=== PATIENT | female | born 1940 | race Caucasian/White ===

== ENCOUNTER → 2020-01-11 10:55 | Outpatient (CLI) | payer MEDICARE, SELFPAY ==
[2020-01-11 12:39] LABS: COVID19 -Nasal RAPID Negative (Negative)
== END ==
PROVIDERS: PCP Internal Medicine; Visit Provider Physician Assistant
DX: Z11.59 Encounter for screening for other viral diseases (principal)
CPT/HCPCS: 87635

== ENCOUNTER 2020-01-14 15:54 | Inpatient (IN) | payer MEDICARE, SELFPAY ==
[2020-01-08 08:45] VITALS: BMI 20.1
[2020-01-13] VITALS (22 sets, daily range): BP systolic 97–177; BP diastolic 49–88; PULSE 60–79; RESP 10–22; TEMP 35.9–37.2; O2SAT 10–98; BMI 19.1
--- NOTE | 2020-01-13 | DI.RAD.S_ITS ---
PROCEDURE: XR LUMBAR SPINE 2-3V INDICATIONS: L4-L5 TLIF TECHNIQUE: 2 views of the lumbar spine were acquired. COMPARISON: None. FINDINGS: Spot fluoroscopic intraoperative images demonstrating L4-L5 posterior spinal fixation hardware with paraspinal uma and pedicle screws. Interbody cage graft also noted. Dictated by: Ameya Caudra M.D. on 01/13/2020 at 16:05 Approved by: Ameya Cuadra M.D. on 01/13/2020 at 16:06
[2020-01-13] MEDS: LACTATED RINGERS 1,000 ML 42 ML IV (12:00)
--- NOTE | 2020-01-13 12:12 | PM.PREOP ---
Pre-operative Note COVID-19 COVID-19 status: Negative Result date/Date tested (Pos, Neg/Pending): 01/11/20 Interval Note History & Physical reviewed/Exam performed by Physician: Yes Changes to H&P: No
[2020-01-13] MEDS: CEFAZOLIN 2 GM/100 ML FROZ.PIGGY IV (12:40)
--- NOTE | 2020-01-13 13:20 | SUR.OPER ---
Prone on spine table, head in foam head support, padded chest and pelvic supports, gel pad at knees, lower legs supported by pillows; nipples, genitalia and toes free of pressure, arms secured on foam padded arm boards at <90 degrees abduction. Tape over blanket at thigh secured to table.
[2020-01-13] MEDS: BUPIVACAINE LIPOSOME 266 MG/20 ML VIAL INJ (13:27)
[2020-01-13] MEDS: BUPIVACAINE 0.5% W/ EPI (PF) 30 ML VIAL INJ (13:27)
[2020-01-13] MEDS: ACETAMINOPHEN IV 1,000 MG/100 ML VIAL 400 MG IV (13:56)
--- NOTE | 2020-01-13 15:17 | P.OP_ITS ---
Operative Date/Time/Diagnoses Date of procedure: 01/13/20 Time of procedure: 12:17 Pre-op diagnosis: 1. L4-5 spondylolisthesis 2. L4-5 spinal stenosis Post-op diagnosis: same Procedure & Clinicians Procedure: 1. L4-5 Postero-lateral and posterior interbody fusion 2. L4-5 interbody cage placement. 3. L4-5 decompressive laminectomy with bilateral facetecomies 4. L4-5 Posterior non-segmental instrumentation 5. [place]kee of bone marrow from iliac crest 6. Utilization of microsurgical technique and operating microscope Same procedure as scheduled: Yes Indications: Patient has been having chronic back pain and worsening lumbar radiculopathy. Patient failed multiple conservative management with worsening pain weakness and numbness in her lower extremity. Patient has been having difficulty performing activity of daily living. After discussing risks benefits of treatment options, patient elected proceed with surgery. Surgeon: Yris Adams House Piping Inspector: Tari Prince Click Yes if Unassisted: No Anesthesia Type: General Operative Notes Closure Type: primary Specimen(s): none sent Prosthetic devices, grafts, tissues, transplants, or devices: Globus revolve screws, Rise cage Estimated Blood Loss (mL): 75 Blood products transfused: none Procedure in detail: Patient was seen in the preoperative area. Risks and benefits of the surgery was discussed with the patient. Informed consent was obtained from the patient and placed in the chart. Surgical site was marked. Patient was taken to the operative room. General anesthesia was administered. Prophylactic antibiotic was given to the patient less than 30 min before the incision was made. Patient was placed into a prone position on the Naman table. Patient's back was then prepped and draped in the sterile fashion. Time- out was performed at this time. Using AP and lateral C-arm imaging the interval between L4-5 was identified and marked on patient's back. A 2 inch incision 2 in from midline was made on the right side first. The fascia was incised in line with skin incision. Globus MARS retractors was placed inside the incision and docked onto the L4 lamina. Using microsurgical technique and operating microscope, a L4 laminectomy and L4-5 facetectomy was performed using a Kerrison rongeur. The disc space at L4-5 was identified. And a total diskectomy was performed at L4-5 level. The endplates were decorticated using a rasp and shaver. The total diskectomy and decortication was performed at L4-5 level in order to to accomplish a L4-5 fusion. The local bone from the laminectomy and facetectomy was saved for local bone grafting. After the total diskectomy and decortication was completed, Trifecta bone graft material was combined with local bone that was harvested earlier. At this time, a separate skin is incision was made over the iliac crest. A Jamshidi needle was inserted into the iliac crest through a separate skin incision. 5 cc of bone marrow aspiration was obtained through the separate skin incision using a Jamshidi needle from the iliac crest. The bone marrow aspiration was combined with local bone and the Trifecta bone grafting material. The bone grafting material was placed into the L4-5 interbody space along with a expandable cage. The cage was expanded to its maximum height using the torque limiting screwdriver. At this time a mirror image incision was made on the left side. The fascia was incised in line with the skin incision. Globus MARS retractor was inserted and docked onto the L4-5 posterolateral gutter. Using the power drill, posterior- lateral decortication was performed at L4-5 level until bleeding cortical bone was identified. The remaining bone grafting material was placed into the L4-5 posterior lateral gutter he order to accomplish posterolateral fusion at the L4- 5 level. Using the double C-arm technique, pedicle screws were placed into the L4-5 pedicles bilaterally. This was done by placing the Jamshidi needle into the pedicles, then placing the guidewires over the Jamshidi needle, and finally placing the cannulated screws over the guidewires bilaterally. After the pedicle screws were placed, 2 titanium rods was locked into the heads of the pedicle screws using locking caps and torque limiting screwdriver. After all the hardware was placed, and confirmed with AP and lateral C-arm imaging, the wound was then irrigated with sterile normal saline and packed with Ray-Leslie gauze for 3 min to accomplish hemostasis. After the gauze was removed the deep fascia was closed with #1 Vicryl suture. The subcutaneous layer was closed with 2-0 Vicryl. The skin was closed with skin serafin. Patient tolerated the procedure well. There were no complications. Complications: none Post-operative Condition: stable Disposition: PACU Plan for aftercare: Admit to inpatient hospital
[2020-01-13] MEDS: fentaNYL 100 MCG/2 ML INJ IV (15:57)
[2020-01-13] MEDS: ONDANSETRON 4 MG/2 ML INJ IV (16:09)
[2020-01-13] MEDS: OXYCODONE IR 5 MG TABLET PO (16:09)
--- NOTE | 2020-01-13 19:14 | PC.NURSE ---
Addendum entered by Zabrina Ramirez R.N. 01/13/20 21:58: Relatively uneventful evening. Med w/ oxycodone @ 2030 for discomfort, w/good relief. Surgical dsg to back CDI. Call light w/in reach, pt calls appropriately for needs. Continue w/plan of care. Original Note: Pt arrived from PACU @ 1635 Awake but drowsey Surgical back dsg CDI. HL intact/patent, right hand. Call light w/in reach, bed alarm on for pt safety.
[2020-01-13] MEDS: GABAPENTIN 600 MG TABLET PO (20:26)
[2020-01-13] MEDS: METOPROLOL ER 25 MG TABLET PO (20:26)
[2020-01-13] MEDS: OXYCODONE/ACETAMINOPHEN 5/325 TABLET 1 TAB PO (20:27)
[2020-01-14] VITALS (8 sets, daily range): BP systolic 103–127; BP diastolic 55–73; PULSE 65–78; RESP 15–19; TEMP 36–37.2; O2SAT 96–97
[2020-01-14] MEDS: OXYCODONE/ACETAMINOPHEN 5/325 TABLET 1 TAB PO ×4 (00:29→19:47)
[2020-01-14] MEDS: LEVOTHYROXINE 137 MCG TABLET PO (05:55)
--- NOTE | 2020-01-14 07:38 | PM.PNPO.1 ---
Subjective Subjective Date Patient Seen: 01/14/20 Time Patient Seen: 07:38 Interval history: POD #1 s/p L4-[address] Adams. She is having a lot of pain in the back and into the right leg. Pain not well controlled with Oxycodone 5 mg. No issues in the past taking steroids. Exam Vital Signs (past 8 hours): - 01/13/20 23:56 01/14/20 04:57 Temperature 96.6 F L 96.8 F L Pulse Rate 67 65 Respiratory Rate 16 16 Blood Pressure 132/63 111/60 Pulse Oximetry 98 97 Oxygen Delivery Method Room Air Oxygen Flow Rate 0 Narrative Exam Narrative: Patient lying in bed in NAD. She is alert and oriented X3. Calves are soft, compressible, and nontender bilaterally. She is able to actively dorsiflex and plantarflex. SILT through BLEs. 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) Endometrial carcinoma (1996) GERD (gastroesophageal reflux disease) History of sepsis (03/2010) Hx SBO (09/1998) Hypothyroidism LBBB (left bundle branch block) (~2016) Polyneuropathy Small intestine cancer Surgical History History of bronchoscopy (2016) History of hysterectomy (1996) History of rectal surgery (10/2009) History of surgery (09/2014) Hx of abdominal surgery (11/1998) Hx of appendectomy (1996) Hx of bilateral cataract extraction Hx of ileostomy (03/2009) Hx of resection of rectum (02/2009) Social History household members: none Smoking Status: Never smoker alcohol intake: never Assessment & Plan Post-op Postoperative Procedures: Procedures Operation Date: 01/13/20 12:45 Actual Procedures Side Surgeon p L4-5 TLIF Yris Adams MD Patient will mobilize with PT today. No excessive bending, lifting, or twisting. Will increase to Oxycodone 10 mg. Will start 24 hour steroid burst with Decadron 10 mg IV now, and Decadron 4 mg Q6HRs. If patient is mobilizing safely with adequate pain control she can go home today or tomorrow. Quality VTE Deep Vein Thrombosis/Pulmonary Embolism Present on Admission: No
[2020-01-14] MEDS: lisinopriL 5 MG TABLET 2.5 MG PO (08:27)
[2020-01-14] MEDS: DEXAMETHASONE 10 MG/ML VIAL IV (08:29)
[2020-01-14] MEDS: GABAPENTIN 600 MG TABLET PO ×3 (08:29→19:50)
[2020-01-14 08:43] LABS: Hematocrit 29.7 % (36-46); Mean Corpuscular HGB Conc 33.6 % (30-36); Mean Corpuscular Hemoglobin 31.8 PG (26-34); Mean Corpuscular Volume 94.6 fL (80-100); Platelet Count 270 X10^3/uL (150-400); Red Blood Cell Count 3.14 X10^6/uL (4.0-5.2); Red Cell Distribution Width 14.1 % (11.6-14.8); White Blood Cell Count 16.1 X10^3/uL (4.5-11.0)
--- NOTE | 2020-01-14 11:30 | PT.IIE ---
Current Diagnoses Spondylolisthesis, lumbar region (01/13/20) Spinal stenosis, lumbar region without neurogenic claudication (01/13/20) Surgery Performed Operation Date: 01/13/20 12:45 Actual Procedures p L4-5 TLIF - Yris Adams MD Surgical History (Last Reviewed 01/14/20 @ 10:24 by Tari Prince PA-C) History of bronchoscopy (2016) History of hysterectomy (1996) History of rectal surgery (10/2009) History of surgery (09/2014) Hx of abdominal surgery (11/1998) Hx of appendectomy (1996) Hx of bilateral cataract extraction Hx of ileostomy (03/2009) Hx of resection of rectum (02/2009) Medical History (Last Reviewed 01/14/20 @ 10:24 by Tari Prince PA-C) BCC (basal cell carcinoma) Cardiomyopathy CHF (congestive heart failure) 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 Pt is an effective verbal communicator. Mobility and Gait Pt states she uses furniture and cárdenas for support inside her small home. She uses a cane to go outside and retrieve her mail. When shopping, she is able to complete a grocery trip with a standard cart but will occasionally use a motorized cart. Activities of Daily Living and IADL's Independent with all ADL's. Pt independently manages her ostomy. She states she drinks a lot of water and tends to wear a pad especially at night . She reports saddle anesthesia which occasionally makes it difficult to know when she needs to void. Prior Functional Level (Other details) Pt reports one fall in the past year which occured on uneven ground while pruning raspberries. Social History Household Members none Living Arrangements Mobile home Number of Floors (Floors) One Floor Number of Stairs To Enter/Railing? 4 TERESITA with right rail ascending. There is another stair set with bilateral rails but pt typically uses the one with unilateral railing. 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 She now lives alone in a mobile home in [place]. Her recently moved to a memory care facility in [place]. Pt's [id number] will pick her up at discharge and her friend , Mandi, will stay with her until Monday. Pt states she has lined up friends to assist as needed after Monday for as long as she needs help. M2 PT-IP Current Condition Start: 01/14/20 10:26 Freq: NEEDED Status: Active Protocol: Document 01/14/20 11:22 AW (Rec: 01/14/20 13:00 AW [id number]) Physical Therapy Current Condition Current Condition Evaluation Date 01/14/20 Treatment Diagnosis L4-5 TLIF, difficulty in walking Onset Date 01/13/20 Precautions Lumbar Precautions Log Roll,No Twisting,Limit Bending,Lifting Restriction of 10 lbs,Gait Belt above Incisional Area M3 PT-IP Subjective Start: 01/14/20 10:26 Freq: NEEDED Status: Active Protocol: Document 01/14/20 11:22 AW (Rec: 01/14/20 13:00 AW [id number]) Subjective Physical Therapy Visit Type Type Initial Evaluation Visit Start Time 10:33 Visit Stop Time 11:19 Total Visit Minutes 46 Notes Co-eval with MILEY Echeverria Number of METALS ANALYST Visits 0 Physical Therapy Visit Comments Patient Comments Pt is having difficulty with pain control but is willing to participate with PT Patient Goals Pt hopes to return home with friends providing support. Therapy Pain Assessment Pain When Pain Assessed At Rest Pain Present Pain Present Pain Reported Location Left Back Intensity 5 Scale Used Numeric (0 - 10) Pain Management Techniques Apply Cold,Timing of Activity with Medications M4 PT-IP Mobility and Gait Start: 01/14/20 10:26 Freq: NEEDED Status: Active Protocol: Document 01/14/20 11:22 AW (Rec: 01/14/20 13:00 AW [id number]) PT-Bed Mobility Assessment Rolling Type of Rolling Log Rolling,Roll to Right Level of Assist Contact Guard Assistance, Minimal Assistance Supine to Sit Supine to Sit Contact Guard Assistance, Minimal Assistance Sit to Supine Sit to Supine Contact Guard Assistance, Minimal Assistance Scooting Scooting to Edge of Bed Standby Assistance PT-Transfer Assessment Sit to and From Stand Sit to and from Stand Minimal Assistance,Use of Upper Extremities Equipment Transfer Assistive Device Gait Belt,Front Wheeled Walker Orthotic/Prosthetic Devices or Brace: No Transfers Transfer Destination Chair,Toilet Transfer Technique pt amb with FWW Transfer Ability Level of Assist Contact Guard Assistance, Minimal Assistance Comments Mobility Comments Pt was lying in bed as PT and OT arrived. BP was 132/72 HR 71. She was educated in back precautions and log roll for bed mobility. She requried min assist to roll to her right side and to transition from sidelying to sit. Pt complained of mild lightheadedness in sitting. BP was stable at 131/67 HR 77. Pt was able to stand using FWW min A x 1. She ambulated to the toilet CGA. OT assisted pt with toileting. Pt then ambulated to the chair, complaining of increased lightheadedness. With min 1PA, she transferred safely to the chair. BP was 118/59 HR 70. Pt was left with OT. Gait Assessment Gait Gait Assistance Required: Contact Guard Assist Distance (Feet) 15 Able to Maintain Weight Bearing Status Yes During Gait Assistive Devices Assistive Device Gait Belt,Front Wheeled Walker Orthotic/Prosthetic Devices or Brace: No Gait Deviations General Gait Pattern Antalgic,Decreased Stride Length,Decreased Feet Clearance,Flexed Trunk Factors Limiting Gait Function Factors Limiting Gait Function Decreased Activity Tolerance, Decreased Sensation,Decreased Strength,Limited Range of Motion,Pain,Poor Balance Comments Gait Comments Pt ambulated with good awareness of back precautions, often verbalizing her movement strategies before executing. Stair Climbing Assessment Comments Stair Climbing Comments Not assessed. PT-Balance Assessment Sitting Balance and Reactions Static Sitting Balance Ability Good Dynamic Sitting Balance Ability Good Standing Balance and Reactions Static Standing Balance Ability Good Dynamic Standing Balance Ability Good Device Used FWW M5 PT-IP Objective Assessments Start: 01/14/20 10:26 Freq: NEEDED Status: Active Protocol: Document 01/14/20 11:22 AW (Rec: 01/14/20 13:00 AW [id number]) Orientation Orientation/Cognition Level of Alertness Alert Orientation Name,Age,Birthday,Month,Date, Year,Day of Week,Place, Situation Language Function Ability No Deficits Noted Safety Awareness Understands Safety Issues Memory Description No Deficits Noted Gross Range of Motion Lower Extremity ROM Assessment Within Functional Limits Strength Lower Extremity Strength Assessment Bilaterally Impaired Hip L4/5; R 4-/5 Knee B 4+/5 Ankle B 4+/5 Coordination Assessment Gross Coordination Gross Coordination WNL Sensation Assessment Sensation Gross Sensation Right LE Impaired,Left LE Impaired Light Touch Impaired Comments Sensation Comments Light touch impaired with right more affected than left. Pt also endorsed saddle anesthesia which is chronic. Muscle Tone Muscle Tone WNL Yes M6 PT-IP Treatment Start: 01/14/20 10:26 Freq: NEEDED Status: Active Protocol: Document 01/14/20 11:22 AW (Rec: 01/14/20 13:00 AW [id number]) Physical Therapy Treatment Education Education Provided Precautions,Post-Op Packet, Safety Other Treatments Other Treatment Performed Provided education on role of PT, plan of care, post op precautions, and safe use of FWW. M7 PT-IP Assessment and Plan Start: 01/14/20 10:26 Freq: NEEDED Status: Active Protocol: Document 01/14/20 11:22 AW (Rec: 01/14/20 13:00 AW [id number]) PT Summary Assessment and Plan Potential Rehabilitation Potential Good Status of Condition at Evaluation Evolving Summary Impairments Pain,ROM,Strength,Balance, Sensation,Bed Mobility, Transfers,Gait,Activity Tolerance Assessment Summary Krysta is a 79 yo woman seen for PT evaluation on POD1 following L4-5 TLIF. She is modified independent at baseline with use of SPC for longer distances. She lives alone but will have friends stay with her at discharge. On evaluation, pt requried CGA to min assist with bed mobility, transfers, and short bout ambulation with FWW. Pt is not safe for discharge at this time. She will need to increase her activity tolerance and clear stairs prior to discharge but PT anticipates she will progress and be safe for discharge home with assist once medically cleared. Goals Bed Mobility Goal Standby Assistance Transfer Goal Standby Assistance,Front Wheeled Walker Gait Goal Standby Assistance,Front Wheel Walker Gait Distance 200 Other Goals - up/down 4 steps with unilateral rail SBA Days to Meet Goals 3 Frequency of Treatment Frequency Of Treatment Twice a Day Treatment Plan Physical Therapy Treatment Plan Bed Mobility Training,Transfer Training,Gait Training, Therapeutic Exercise,Balance Retraining,Post Op Education, Discharge Planning,Hot or Cold Pack Recommendations To Nursing Amount of Assist Needed 1 Person Assist Discharge Recommendations PT Discharge Recommendations Home with Assistance Transportation Needs at Discharge Private Vehicle
--- NOTE | 2020-01-14 11:32 | OT.IP.EVAL ---
Current Diagnoses Spondylolisthesis, lumbar region (01/13/20) Spinal stenosis, lumbar region without neurogenic claudication (01/13/20) Surgery Performed Operation Date: 01/13/20 12:45 Actual Procedures p L4-5 TLIF - Yris Adams MD Past Medical History (Last Reviewed 01/14/20 @ 10:24 by Tari Prince PA-C) BCC (basal cell carcinoma) Cardiomyopathy CHF (congestive heart failure) Colostomy in place (11/2008) Endometrial carcinoma (1996) GERD (gastroesophageal reflux disease) History of sepsis (03/2010) Hx SBO (09/1998) Hypothyroidism LBBB (left bundle branch block) (~2016) Polyneuropathy Small intestine cancer Surgical History (Last Reviewed 01/14/20 @ 10:24 by Tari Prince PA-C) History of bronchoscopy (2016) History of hysterectomy (1996) History of rectal surgery (10/2009) History of surgery (09/2014) Hx of abdominal surgery (11/1998) Hx of appendectomy (1996) Hx of bilateral cataract extraction Hx of ileostomy (03/2009) Hx of resection of rectum (02/2009) Occupational Therapy Inpatient Evaluation/Re-Eval M1 PT/OT-IP Prior Functional Status Start: 01/14/20 14:38 Freq: NEEDED Status: Active Protocol: Document 01/14/20 10:35 [facility] (Rec: 01/14/20 15:07 [facility] [id number]) Medical Review Prior Functional Status Medical History Reviewed Yes Communication WNL. Pt is an effective verbal communicator. Mobility and Gait Pt states she uses furniture and cárdenas for support inside her small home. She uses a cane to go outside and retrieve her mail. When shopping, she is able to complete a grocery trip with a standard cart but will occasionally use a motorized cart. Activities of Daily Living and IADL's Independent with all ADL's. Pt independently manages her oostomy. She states she drinks a lot of water and tends to wear a pad especially at night . She reports saddle anesthesia which occasionally makes it difficult to know when she needs to void. Prior Functional Level (Other details) Pt reports one fall in the past year which occured on uneven ground while pruning raspberries. Social History Household Members none Living Arrangements Mobile home Number of Floors (Floors) One Floor Number of Stairs To Enter/Railing? 4 TEERSITA with right rail ascending. There is another stair set with bilateral rails but pt typically uses the one with unilateral railing. 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 She now lives alone in a mobile home in [place]. Her recently moved to a memory care facility in [facility]. Pt's [id number] will pick her up at discharge and her friend , Mandi, will stay with her until Monday. Pt states she has lined up friends to assist as needed after Monday for as long as she needs help. M2 OT-IP Current Condition Start: 01/14/20 14:38 Freq: Status: Active Protocol: Document 01/14/20 10:35 [facility] (Rec: 01/14/20 15:07 [facility] [id number]) Occupational Therapy Current Condition Current Condition Evaluation Date 01/14/20 Treatment Diagnosis s/p L4-5 TLIF Diagnosis Onset Date Post Operative Precautions Lumbar Precautions Log Roll,No Twisting,Limit Bending,Lifting Restriction of 10 lbs,Gait Belt above Incisional Area M3 OT- IP Subjective and Pain Start: 01/14/20 14:38 Freq: Status: Active Protocol: Document 01/14/20 10:35 [facility] (Rec: 01/14/20 15:07 [facility] [id number]) OT- Subjective Occupational Therapy Visit Type Type Initial Evaluation Visit Start Time 10:35 Visit Stop Time 11:32 Total Visit Minutes 57 Occupational Therapy Visit Comments Patient Comments Pt agreed to get up for Ot/Pt evals. Patient/Caregiver Goals To go home. OT Pain Assessment Pain When Pain Assessed At Rest Pain Present Pain Present Pain Reported Location Left Back Intensity 5 M4 OT- IP ADL's Start: 01/14/20 14:38 Freq: Status: Active Protocol: Document 01/14/20 10:35 [facility] (Rec: 01/14/20 15:07 [facility] [id number]) OT [id number]-Klsaqyf Comments OT Self-Feeding Comments NOt at meal, should have no issues. OT ADL-Grooming General Evaluation Grooming Ability Standby Assistance Areas Needing Assistance Retrieving/Set-up of Grooming Items Comments OT Grooming Comments Set-up while sitting in the recliner to wash her hands as too tired to walk to the sink at this time. OT ADL-Oral Care Comments Oral Care Comments Not performed. Educated best to spit into a cup versus bend over to spit into the sink in order to best follow her back precautions. OT ADL-Dressing General Eval Lower Body Dressing Ability Maximum Assistance Areas Needing Assistance Underpants/Brief,Socks Comments OT Dressing Comments Initiated education of LB dressing equipment, at this time pt needing MAX A for needs as she usually bends over to do her LB dressing needs. OT ADL-Toileting General Evaluation Toileting Ability Moderate Assistance Areas Needing Assistance Manage Clothing Comments OT Toileting Comments Pt states tends to wipe by leaning way over in order to reach her behind, otherwise she states normally at home she would just shower. Educated may be best to stand and reach or use of toilet paper aid, to practice more tomorrow. OT ADL-Bathing Comments OT Bathing Comments Not at this time, pt could benefit from a hand held shower spray at home. M5 OT- IP IADL's Start: 01/14/20 14:38 Freq: Status: Active Protocol: Document 01/14/20 10:35 [facility] (Rec: 01/14/20 15:07 [facility] [id number]) OT-Instrumental Activities of Daily Living Home Safety Awareness Home Safety Comments Pt a little groggy today and pt's friends to come and stay with her upon discharging home. Pt's friend may need to assist more with needs especially for medications and toileting, dressing , bathing and IADl needs. M6 OT- IP Functional Cognition Start: 01/14/20 14:38 Freq: Status: Active Protocol: Document 01/14/20 10:35 [facility] (Rec: 01/14/20 15:07 [facility] [id number]) Cognitive Factors Limiting Selfcare Function Cognitive Ability Level of Alertness Alert,Drowsy Patient Orientation Name,Place,Situation Attention Span Ability Capable of Focused Attention, Capable of Sustained Attention Ability to Follow Commands Able to Follow One Step Commands Safety Awareness Decreased Ability to Apply Precautions,Underestimates Need for Assistance Cognitive Comments Cognitive Assessment Comments Pt a little groggy and needing reminders for back precautions . OT- Vision and Hearing OT- Hearing Assessment OT- Hearing Assessment WFL OT- Vision Assessment Visual Acuity Glasses All The Time M7 OT- IP Mobility and Balance Start: 01/14/20 14:38 Freq: Status: Active Protocol: Document 01/14/20 10:35 [facility] (Rec: 01/14/20 15:07 [facility] [id number]) OT- Bed Mobility Assessment Rolling Type of Rolling Roll to Right Level of Assistance Contact Guard Assistance Supine to Sit Supine to Sit Assist Contact Guard Assistance, Minimal Assistance OT-Transfer Assessment Sit to and From Stand Sit to and from Stand Contact Guard Assistance, Minimal Assistance Transfers Transfer Ability Contact Guard Assistance, Minimal Assistance Technique Transfer Destination Bed,Chair,Toilet Transfer Technique Stand Step Pivot Devices Transfer Assistive Devices Gait Belt,Front Wheeled Walker Comments Mobility Comments Pt needing initial vc for log rolling and cga for safety. CGA to ALMAZ to stand with FWW. Pt heavily relying on the grab bar to stand to fww. OT- Gait Assessment Comments Gait Ability Comments CGA /ALMAZ with FWW to walk from the bathroom to recliner. OT- Balance Assessment Sitting Balance and Reactions Static Sitting Balance Ability Normal Dynamic Sitting Balance Ability Good Standing Balance and Reactions Static Standing Balance Ability Fair M8 OT- IP Objective Assessments Start: 01/14/20 14:38 Freq: Status: Active Protocol: Document 01/14/20 10:35 [facility] (Rec: 01/14/20 15:07 [facility] [id number]) OT Gross Range of Motion Upper Extremity Range of Motion Assessment Within Functional Limits OT-Muscle Tone Assessment Muscle Tone WNL Yes M9 OT- IP Assessment and Plan Start: 01/14/20 14:38 Freq: Status: Active Protocol: Document 01/14/20 10:35 [facility] (Rec: 01/14/20 15:07 [facility] [id number]) OT Summary Assessment and Plan Potential Rehabilitation Potential Good Analytic Complexity at Evaluation Low Summary OT Impairments Pain,Balance,Functional Cognition,Functional Mobility, Grooming,Dressing,Toileting, Bathing,Toilet Transfers, Shower Transfers,Activity Tolerance Progress Towards Goals Slow Progress due to Pain,Slow Progress due to Activity Tolerance Assessment Summary Pt low complexity and main barriers are steps and now needing assist for ADl needs. Pt also a little groggy and will need assist at home. Pt has friends to stay with her initially. OT to work with on LB dressing equipment need and showering tomorrow. Goals Grooming Goal Independent Dressing Goal Independent Toileting Goal Independent Bathing Goal Standby Assistance Toilet Transfer Goal Independent Shower Transfer Goal Standby Assistance Patient/Caregiver Education Goal Demonstrate Post-Op Precautions,Caregiver Independent Assisting Patient Days to Meet Goals 3 Frequency of Treatment Frequency Of Treatment Once a Day Treatment Plan OT Treatment Plan ADL Training,Functional Cognition Training,Functional Mobility,Patient/Family Education,Discharge Planning Other Treatment Recommendations and Next shower Treatment Focus Discharge Recommendations OT Discharge Recommendations Home with Assistance Home Equipment Needs Hand held shower spray Transportation Needs at Discharge Private Vehicle
[2020-01-14] MEDS: DEXAMETHASONE 4 MG/ML VIAL IV ×2 (13:50→19:47)
--- NOTE | 2020-01-14 17:04 | CM.DANOTE ---
DCP/Assessment: Reviewed chart. Patient is a 79yr old female admitted [facility] on 01-14-[address] Adams. PCP listed is Becky Sood. Primary payor is 1)Medicare 2)[facility]. Met with patient explained role. Patient reports that she does not anticipate any d/c planning needs. Patient has supportive daughter and friends nearby that can assist. Patient does report having walker and hopes to d/c home tomorrow 01-15-20. P: Home when stable. SHEILA Burris Discharge Planning/Care Management Advanced directive, confirm from FAMILY Start: 01/13/20 18:52 Freq: Q24H Status: Active Protocol: Document 01/13/20 18:52 KMD (Rec: 01/13/20 19:08 KMD [id number]) Advance Directive, confirm on record Time 19:07 Person contacted Patient Copy received No CM Discharge Assessment Start: 01/14/20 16:56 Freq: Status: Active Protocol: Document 01/14/20 16:57 KJS (Rec: 01/14/20 17:04 KJS [id number]) Discharge Planning Assessment Assigned Surgery Attendant SHEILA Burris Advance Directives? Yes Advance Directives on File No History Provided By Patient Prior Living Arrangements Mobile home Household Members none Independent with ADL's Yes Is patient alert and oriented? Yes Caregiver for Another No DME Already Rented / Owned FWW / Walker Barriers to Discharge No Discharge Plan Home Transportation Arrangement Family to provide transport. Referrals Initiated None needed Whiteboard Updated in Patient Room with Yes name and ext. # of Surgery Attendant Review Status In Process Next Review Type Continued Stay Review Pre-Anesthesia Assessment Start: 01/08/20 08:45 Freq: Status: Active Protocol: Document 01/08/20 08:45 [facility] (Rec: 01/08/20 09:45 CAB [id number]) Pre-Anesthesia Assessment Patient Information Reviewed Via Phone Assessment Assessment Completed With Patient Diagnostic Results EKG Comment COVID screen @ 01/11/20 Primary Care Provider Becky Sood Seen Specialist in Last 12 Months Yes Specialist Seen Device Sales Consultant,Oncologist, Orthopedist Primary Language [place] Cow Rider Required No Height 167.64 cm Weight 56.699 kg Body Mass Index (BMI) 20.1 Hearing Ability Normal Visual Assist Glasses Dentition Type Full- Upper Barriers to Learning None Hx Anesthesia Reactions No Hx Family Anesthesia Reaction No Hx Malignant Hyperthermia No Hx Blood Transfusions Yes: 2009, 2010 Hx Blood Transfusion Reaction No Anesthesia Review Requested No alcohol intake never Smoking Status Never smoker Substance Use Type does not use Pain Present Pain Reported Musculoskeletal Symptoms Abnormal Gait,Back Pain, Difficulty Walking,Joint Pain, Neck Pain,Numbness,Tingling History of Falling (Recent or History of No ) Patient is completely paralyzed or No completely immobile Mental Status Oriented to own ability Is patient on oxygen? No Does patient have TRINIDAD/SOB No Hx Sleep Apnea No Currently Taking a Beta Shireen Yes: Metroprolol Can You Climb a Flight of Stairs Without No SOB Hx Chest Pain No Hx SOB No Hx Syncope or Dizziness Yes: A little bit of dizziness intermittently Anti-Coagulant Therapy No Has a Device Sales Consultant Yes: Dr. Mcgee-last visit Cardiac Testing Yes: Echo @ [facility] 10/09/19 Hx Pacemaker/ICD No Pacemaker Rep Required? No Cardiac Clearance Received Yes Comment Cardiac records scanned Diet Type At Home Regular dysphagia No Gastrointestinal Symptoms Diarrhea,Reflux Bladder Pattern Incontinent, Stress Urinary Catheter Present No Hx Urinary Self Catheterization No Diabetes No Patient No Lactating No Hx Drug Resistant Organism No Presence of External or Internal Medical Yes: Ángel eye lens, abdominal Devices clip Have you had any close contact with No someone diagnosed with COVID-19? Marital Status Lives With none Prior Living Arrangements Mobile home Number of Floors (Floors) One Floor Support System Child/Children,Friend(s) Does the Patient Have Assistance After Yes: now in memory Surgery care. [id number] will be home w/pt Patient Discharge Plan Description Return Home Comment Pt not advised on length of stay per surgeon Feels Safe in Current Environment Yes Been Physically Hurt or Threatened By a No Person in Current Environment Do you have thoughts of harming yourself None or others? Are you currently considering suicide? No Do you have a plan to hurt yourself or No Plan others? Do You Have Any Spiritual Beliefs That No May Affect Your HC Choices? Do You Have Any Cultural Practices That No May Affect Your HC Choices? Comment Yazidism Who Can We Speak to About Patient's Care Family, friends Identifying Code for Release of Patient Declines to issue Information Health Care Proxy/Next of Kin Dary (daughter) Health Care Proxy Emergency Contact Name Segundo (son) Emergency Contact Advance Directives? Yes Advance Directives on File No Requested Patient Bring Advanced Yes Directives DOS Power of Script Editor Yes Power of Script Editor Name Dary (daughter) Power of Script Editor PAC Instructions Durable medical equipment, Medications to take/avoid, Nasal antibiotic,No ETOH/ petroleum product on skin DOS, NPO,Pre-surgical wash,Sensory aids,Sturdy shoes/comfortable clothes,Do not bring valuables and remove jewelry
--- NOTE | 2020-01-14 17:18 | PT.IPTN ---
Current Diagnoses Spondylolisthesis, lumbar region (01/14/20) Spinal stenosis, lumbar region without neurogenic claudication (01/14/20) Surgery Performed Operation Date: 01/13/20 12:45 Actual Procedures p L4-5 TLIF - Yris Adams MD Physical Therapy Treatment Note M2 PT-IP Current Condition Start: 01/14/20 10:26 Freq: NEEDED Status: Active Protocol: Document 01/14/20 11:22 AW (Rec: 01/14/20 13:00 AW [id number]) Physical Therapy Current Condition Current Condition Evaluation Date 01/14/20 Treatment Diagnosis L4-5 TLIF, difficulty in walking Onset Date 01/13/20 Precautions Lumbar Precautions Log Roll,No Twisting,Limit Bending,Lifting Restriction of 10 lbs,Gait Belt above Incisional Area M3 PT-IP Subjective Start: 01/14/20 10:26 Freq: NEEDED Status: Active Protocol: Document 01/14/20 15:55 DE (Rec: 01/14/20 15:58 DE [id number]) Subjective Physical Therapy Visit Type Type Treatment Note Visit Start Time 14:29 Visit Stop Time 14:57 Total Visit Minutes 28 Notes SPT Louis led session under direct supervision of PT Nida. Number of SALES DIRECTOR Visits 0 Physical Therapy Visit Comments Patient Comments Pt is agreeable to do PT. Patient Goals Pt hopes to return home with friends providing support. Therapy Pain Assessment Pain When Pain Assessed During Weight Bearing Pain Present Pain Present Pain Reported Location Left Back Intensity 3 Scale Used Numeric (0 - 10) Pain Management Techniques Timing of Activity with Medications M4 PT-IP Mobility and Gait Start: 01/14/20 10:26 Freq: NEEDED Status: Active Protocol: Document 01/14/20 15:55 DE (Rec: 01/14/20 16:15 DE [id number]) PT-Bed Mobility Assessment Rolling Type of Rolling Log Rolling,Roll to Right Level of Assist Contact Guard Assistance Supine to Sit Supine to Sit Contact Guard Assistance PT-Transfer Assessment Sit to and From Stand Sit to and from Stand Standby Assistance,Use of Upper Extremities Equipment Transfer Assistive Device Gait Belt,Front Wheeled Walker Orthotic/Prosthetic Devices or Brace: No Transfers Transfer Destination Chair Transfer Technique Amb with FWW Transfer Ability Level of Assist Contact Guard Assistance,Use of Upper Extremities Comments Mobility Comments Pt was lying supine in bed upon arrival. Pt complete supine to sit at R side EOB using logroll technique with CGA. Pt then performed sit to stand with FWW CGA. Pt requested to use the bathroom and amb ~7 ft and sat down on toilet with CGA, FWW, and grab bars. PT stepped outside until she was finished. Pt took care of her own pericare. Pt stood up and amb to the sink to wash her hands with FWW CGA. Pt then amb ~120 ft in the hallway to the stairs and back to the room with FWW SBA. Pt demonstrated lack of B knee extension during amb. Cues were provided for knee extension. Pt then performed 3 steps x2 with CGA. The first time, pt performed with B railing. The second time, pt performed with R railing going up. Cues were provided to lead with the stronger leg when ascending and to lead with the weaker leg when descending. Pt had difficulty remembering it and got confused a couple times. Pt demonstrated steadiness without any LOB. Pt then amb back to the room and sat down in chair with FWW SBA. Pt was reclined comfortably in the chair. Call light placed within reach. Gait Assessment Gait Gait Assistance Required: Standby Assistance Distance (Feet) 120 Able to Maintain Weight Bearing Status Yes During Gait Assistive Devices Assistive Device Gait Belt,Front Wheeled Walker Orthotic/Prosthetic Devices or Brace: No Gait Deviations General Gait Pattern Antalgic,Decreased Stride Length,Decreased Feet Clearance,Flexed Trunk Factors Limiting Gait Function Factors Limiting Gait Function Decreased Activity Tolerance, Decreased Sensation,Decreased Strength,Limited Range of Motion,Pain,Poor Balance Comments Gait Comments See mobility comments. Stair Climbing Assessment Evaluation Level of Assist On Stairs Contact Guard Assistance Devices Stair Climbing Assistive Devices Right Railing Technique/Endurance Stair Climbing Direction Ascend and Descend Stair Climbing Technique Step to Step Number of Steps Climbed 3 Stair Climbing Set # Repetitions (reps) 2 Comments Stair Climbing Comments See mobility comments. PT-Balance Assessment Sitting Balance and Reactions Static Sitting Balance Ability Good Dynamic Sitting Balance Ability Good Standing Balance and Reactions Static Standing Balance Ability Good Dynamic Standing Balance Ability Good Device Used FWW M5 PT-IP Objective Assessments Start: 01/14/20 10:26 Freq: NEEDED Status: Active Protocol: Document 01/14/20 11:22 AW (Rec: 01/14/20 13:00 AW [id number]) Orientation Orientation/Cognition Level of Alertness Alert Orientation Name,Age,Birthday,Month,Date, Year,Day of Week,Place, Situation Language Function Ability No Deficits Noted Safety Awareness Understands Safety Issues Memory Description No Deficits Noted Gross Range of Motion Lower Extremity ROM Assessment Within Functional Limits Strength Lower Extremity Strength Assessment Bilaterally Impaired Hip L4/5; R 4-/5 Knee B 4+/5 Ankle B 4+/5 Coordination Assessment Gross Coordination Gross Coordination WNL Sensation Assessment Sensation Gross Sensation Right LE Impaired,Left LE Impaired Light Touch Impaired Comments Sensation Comments Light touch impaired with right more affected than left. Pt also endorsed saddle anesthesia which is chronic. Muscle Tone Muscle Tone WNL Yes M6 PT-IP Treatment Start: 01/14/20 10:26 Freq: NEEDED Status: Active Protocol: Document 01/14/20 15:55 DE (Rec: 01/14/20 16:16 DE [id number]) Physical Therapy Treatment Education Education Provided Precautions,Post-Op Packet, Safety Other Treatments Other Treatment Performed Provided education on role of PT, plan of care, post op precautions, and stair climbing technique. M7 PT-IP Assessment and Plan Start: 01/14/20 10:26 Freq: NEEDED Status: Active Protocol: Document 01/14/20 15:55 DE (Rec: 01/14/20 16:23 DE [id number]) PT Summary Assessment and Plan Potential Rehabilitation Potential Good Status of Condition at Evaluation Evolving Summary Impairments Pain,ROM,Strength,Balance, Sensation,Bed Mobility, Transfers,Gait,Activity Tolerance Assessment Summary Pt demonstrated improved amb distance and activity tolerance. Pt amb ~120 ft with FWW SBA and performed 3 steps x1 CGA with B railing and 3 steps x1 CGA with R railing going up. Pt did not demonstrate any unsteadiness or LOB. PT anticipates pt will be safe to d/c home with assistance once medically cleared. Goals Bed Mobility Goal Standby Assistance Transfer Goal Standby Assistance,Front Wheeled Walker Gait Goal Standby Assistance,Front Wheel Walker Gait Distance 200 Other Goals - up/down 4 steps with unilateral rail SBA Days to Meet Goals 3 Frequency of Treatment Frequency Of Treatment Twice a Day Treatment Plan Physical Therapy Treatment Plan Bed Mobility Training,Transfer Training,Gait Training, Therapeutic Exercise,Balance Retraining,Post Op Education, Discharge Planning,Hot or Cold Pack Recommendations To Nursing Amount of Assist Needed 1 Person Assist Discharge Recommendations PT Discharge Recommendations Home with Assistance Other Discharge Recommendations Improve amb distance Perform 4 steps with R railing going up. Transportation Needs at Discharge Private Vehicle Treatment was provided by LUIS Verde and supervised by Nida Gates, CODY. I personally reviewed this note and agree with its contents.
[2020-01-15 01:00] VITALS: BP 97/51; PULSE 72; RESP 16; TEMP 35.8; O2SAT 94
[2020-01-15] MEDS: DEXAMETHASONE 4 MG/ML VIAL IV ×2 (01:49→08:18)
[2020-01-15] MEDS: OXYCODONE/ACETAMINOPHEN 5/325 TABLET 1 TAB PO ×2 (04:31→10:07)
[2020-01-15 04:34] VITALS: BP 138/69; PULSE 72; RESP 16; TEMP 35.9; O2SAT 97
[2020-01-15] MEDS: LEVOTHYROXINE 137 MCG TABLET PO (05:45)
[2020-01-15 07:37] VITALS: BP 128/66; PULSE 75; RESP 15; TEMP 36.4; O2SAT 97
--- NOTE | 2020-01-15 07:37 | PM.DS.1 ---
History of Present Illness History of Present Illness Date Patient Seen: 01/15/20 Time Patient Seen: 07:37 Chief complaint: OPB Narrative: Patient has been having chronic back pain and worsening lumbar radiculopathy. Patient failed multiple conservative management with worsening pain weakness and numbness in her lower extremity. Patient has been having difficulty performing activity of daily living. After discussing risks benefits of treatment options, patient elected proceed with surgery. Discharge Providers Provider Date of admission: 01/14/20 15:54 Discharge Date: 01/15/20 Primary care physician: Becky Sood MD Consults: 01/14/20 09:55 Consult to Occupational Therapy Evaluate & Treat Comment: Physician Instructions: Evaluate and treat Consult to Physical Therapy Evaluate & Treat Comment: Physician Instructions: Evaluate and Treat Discharge provider: Tari Prince PA-C Summary Hospital Course Discharge Diagnosis: s/p TLIF Hypothyroidism Osteoporosis LBBB CHF Colostomy in place History of uterine cancer History of small intestine cancer History of endometrial cancer Hospital Course: Krysta was admitted for L4-[address] Adams. She did have pain control issues POD #1 and went on a 24 hour steroid burst that significantly subsided her pain. Her pain was tolerable at discharge. She mobilized safely with PT throughout her stay. She was eating and voiding without difficulty or assistance. Exam Vital Signs (past 8 hours): - 01/15/20 01:00 01/15/20 04:34 Temperature 96.5 F L 96.7 F L Pulse Rate 72 72 Respiratory Rate 16 16 Blood Pressure 97/51 L 138/69 Pulse Oximetry 94 97 Oxygen Delivery Method Room Air Oxygen Flow Rate 0 Narrative Exam Narrative: Patient sitting in bedside chair in NAD. She is alert and oriented X3. Calves are soft, compressible, and nontender bilaterally. Dressing on back is CDI. No complaints this morning. 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) Endometrial carcinoma (1996) GERD (gastroesophageal reflux disease) History of sepsis (03/2010) Hx SBO (09/1998) Hypothyroidism LBBB (left bundle branch block) (~2016) Polyneuropathy Small intestine cancer Surgical History History of bronchoscopy (2016) History of hysterectomy (1996) History of rectal surgery (10/2009) History of surgery (09/2014) Hx of abdominal surgery (11/1998) Hx of appendectomy (1996) Hx of bilateral cataract extraction Hx of ileostomy (03/2009) Hx of resection of rectum (02/2009) Social History household members: none Smoking Status: Never smoker alcohol intake: never Discharge Plan Discharge Plan Patient Disposition: Home Discharge orders & Medications Prescriptions: New oxycodone-acetaminophen 5-325 mg Tablet 1 tab PO Q4HR PRN (Reason: Pain, Severe (7-10)) Qty: 50 RF: 0 Continued cyanocobalamin (vitamin B-12) 1,000 mcg/mL Solution 1,000 mcg IM Q3W RF: 0 metoprolol succinate 25 mg Tablet Extended Release 24 Hr 25 mg PO BEDTIME RF: 0 lisinopril 2.5 mg Tablet 2.5 mg PO DAILY RF: 0 gabapentin 300 mg Tablet 600 mg PO TID RF: 0 levothyroxine 137 mcg Capsule 137 mcg PO DAILY RF: 0 aspirin 81 mg Tablet 81 mg PO DAILY RF: 0 potassium 99 mg Tablet 99 mg PO DAILY RF: 0 Follow up/Referrals: Yris Adams MD [Physician] - Becky Sood MD [Primary Care Provider] - Skin/Wound/Dressing Care Report to your healthcare provider any signs of infection, such as:: chills, fever and increased pain Visit Report/Discharge Packet Instructions: How to Prevent Falls, DI for Prescription Opioid Use, DI for Transforaminal Lumbar Interbody Fusion Discharge Data Primary Care Provider: Becky Sood Quality VTE Deep Vein Thrombosis/Pulmonary Embolism Present on Admission: No
[2020-01-15 08:18] VITALS: BP 138/69; PULSE 72
[2020-01-15] MEDS: GABAPENTIN 600 MG TABLET PO (08:18)
[2020-01-15] MEDS: lisinopriL 5 MG TABLET 2.5 MG PO (08:18)
--- NOTE | 2020-01-15 10:11 | OT.IP.TRT ---
Current Diagnoses Spondylolisthesis, lumbar region (01/14/20) Spinal stenosis, lumbar region without neurogenic claudication (01/14/20) Surgery Performed Operation Date: 01/13/20 12:45 Actual Procedures p L4-5 TLIF - Yris Adams MD Occupational Therapy Treatment Note M2 OT-IP Current Condition Start: 01/14/20 14:38 Freq: Status: Active Protocol: Document 01/14/20 10:35 [facility] (Rec: 01/14/20 15:07 [facility] [id number]) Occupational Therapy Current Condition Current Condition Evaluation Date 01/14/20 Treatment Diagnosis s/p L4-5 TLIF Diagnosis Onset Date Post Operative Precautions Lumbar Precautions Log Roll,No Twisting,Limit Bending,Lifting Restriction of 10 lbs,Gait Belt above Incisional Area M3 OT- IP Subjective and Pain Start: 01/14/20 14:38 Freq: Status: Active Protocol: Document 01/15/20 09:21 [facility] (Rec: 01/15/20 12:21 [facility] [id number]) OT- Subjective Occupational Therapy Visit Type Type Treatment Note Visit Start Time 09:21 Visit Stop Time 10:11 Total Visit Minutes 50 Occupational Therapy Visit Comments Patient Comments Pt wanting to shower. Patient/Caregiver Goals To go home. OT Pain Assessment Pain When Pain Assessed At Rest Pain Present Pain Present Pain Reported Location Left Back Intensity 5 Scale Used Numeric (0 - 10) M4 OT- IP ADL's Start: 01/14/20 14:38 Freq: Status: Active Protocol: Document 01/15/20 09:21 [facility] (Rec: 01/15/20 12:21 [facility] [id number]) OT FUY-Uhec-Phqijiv General Evaluation Self-Feeding Ability Independent OT ADL-Grooming General Evaluation Grooming Ability Independent OT ADL-Oral Care General Eval Oral Care Ability Independent OT ADL-Dressing General Eval Lower Body Dressing Ability Minimal Assistance Areas Needing Assistance Shoes Assistive Devices Dressing Assistive Devices Long Handled Shoe Horn,Bartender Server Comments OT Dressing Comments Pt issued LB dressing equipment and able to do brief and socks and just needing assist to tie her shoes. OT ADL-Toileting General Evaluation Toileting Ability Standby Assistance Comments OT Toileting Comments SBA for all toileting needs. OT ADL-Bathing Bathing Type Bathing Type Shower General Evaluation Bathing Ability Minimal Assistance Devices Bathing Equipment Shower Chair with Arms,Grab Bars Comments OT Bathing Comments Pt needing assist to help wash /dry her back otherwise able to pt able to do all other showering needs on her own. Pt 's friend available to assist pt for showering needs.. M6 OT- IP Functional Cognition Start: 01/14/20 14:38 Freq: Status: Active Protocol: Document 01/15/20 09:21 [facility] (Rec: 01/15/20 12:21 [facility] [id number]) Cognitive Factors Limiting Selfcare Function Cognitive Ability Level of Alertness Alert Patient Orientation Name,Age,Birthday,Month,Date, Year,Day of Week,Place, Situation Attention Span Ability Capable of Focused Attention, Capable of Sustained Attention Ability to Follow Commands Able to Follow Multi-Step Commands Safety Awareness No Deficits Noted Cognitive Comments Cognitive Assessment Comments Pt more alert today and able to follow back precautions well with good safety. M7 OT- IP Mobility and Balance Start: 01/14/20 14:38 Freq: Status: Active Protocol: Document 01/15/20 09:21 [facility] (Rec: 01/15/20 12:21 [facility] [id number]) OT-Transfer Assessment Sit to and From Stand Sit to and from Stand Standby Assistance Transfers Transfer Ability Standby Assistance Technique Transfer Destination Bed,Chair,Shower Stall,Toilet Transfer Technique Stand Step Pivot Devices Transfer Assistive Devices Gait Belt,Front Wheeled Walker Comments Mobility Comments Today SBA with FWW for mobility needs, more steady on her feet and able to follow all back precautions with good safety. OT- Gait Assessment Comments Gait Ability Comments SBA with FWW. OT- Balance Assessment Sitting Balance and Reactions Static Sitting Balance Ability Normal Dynamic Sitting Balance Ability Normal Standing Balance and Reactions Static Standing Balance Ability Good M8 OT- IP Objective Assessments Start: 01/14/20 14:38 Freq: Status: Active Protocol: Document 01/14/20 10:35 [facility] (Rec: 01/14/20 15:07 [facility] [id number]) OT Gross Range of Motion Upper Extremity Range of Motion Assessment Within Functional Limits OT-Muscle Tone Assessment Muscle Tone WNL Yes M9 OT- IP Assessment and Plan Start: 01/14/20 14:38 Freq: Status: Active Protocol: Document 01/15/20 09:21 [facility] (Rec: 01/15/20 12:21 [facility] [id number]) OT Summary Assessment and Plan Potential Rehabilitation Potential Good Analytic Complexity at Evaluation Low Summary OT Impairments Pain,Functional Mobility, Dressing,Bathing,Shower Transfers Progress Towards Goals Progressing Toward Goals Assessment Summary Pt more alert today and able to follow back precautions with good safety for all Adl and functional mobility needs. Pt issued LB dressing equipment and able to do most of her lower body dressing needs all except for tying her shoes. Pt to have friends stay with her to [facility] for all her needs. Goals Dressing Goal Independent Bathing Goal Standby Assistance Toilet Transfer Goal Independent Shower Transfer Goal Standby Assistance Patient/Caregiver Education Goal Demonstrate Post-Op Precautions,Caregiver Independent Assisting Patient Days to Meet Goals 1 Frequency of Treatment Frequency Of Treatment Once a Day Treatment Plan OT Treatment Plan ADL Training,Functional Cognition Training,Functional Mobility,Patient/Family Education,Discharge Planning Discharge Recommendations OT Discharge Recommendations Home with Assistance Home Equipment Needs LB dressing equipment given. Transportation Needs at Discharge Private Vehicle
--- NOTE | 2020-01-15 10:54 | CM.DPNOTE ---
DC Note DC order in place, met w/patient to review IMM and DCP; patient feels confident about going home w/friends and family to assist and voices no questions or concerns. verbal agreement on IMM JW
--- NOTE | 2020-01-15 11:18 | PC.NURSE ---
Patient and daughter educated about falls, new medications, incision site and dressing, activity, ss of infection, and diet. Patient left facility with all belongings, in a wheelchair to private vehicle. Patient has paper prescription for Percocet to bring to [email or web address].
--- NOTE | 2020-01-15 12:23 | PT.IPTN ---
Current Diagnoses Spondylolisthesis, lumbar region (01/14/20) Spinal stenosis, lumbar region without neurogenic claudication (01/14/20) Surgery Performed Operation Date: 01/13/20 12:45 Actual Procedures p L4-5 TLIF - Yris Adams MD Physical Therapy Treatment Note M2 PT-IP Current Condition Start: 01/14/20 10:26 Freq: NEEDED Status: Discharge Protocol: Document 01/14/20 11:22 [facility] (Rec: 01/14/20 13:00 [facility] [id number]) Physical Therapy Current Condition Current Condition Evaluation Date 01/14/20 Treatment Diagnosis L4-5 TLIF, difficulty in walking Onset Date 01/13/20 Precautions Lumbar Precautions Log Roll,No Twisting,Limit Bending,Lifting Restriction of 10 lbs,Gait Belt above Incisional Area M3 PT-IP Subjective Start: 01/14/20 10:26 Freq: NEEDED Status: Discharge Protocol: Document 01/15/20 10:15 [facility] (Rec: 01/15/20 10:33 [facility] [id number]) Subjective Physical Therapy Visit Type Type Treatment Note Visit Start Time 09:00 Visit Stop Time 09:21 Total Visit Minutes 21 Notes SPT Louis led session under direct supervision of PT Yandel. Number of MATERIALS SCIENTIST Visits 0 Physical Therapy Visit Comments Patient Comments Pt is agreeable to do PT. Patient Goals Pt hopes to return home with friends providing support. M4 PT-IP Mobility and Gait Start: 01/14/20 10:26 Freq: NEEDED Status: Discharge Protocol: Document 01/15/20 10:15 [facility] (Rec: 01/15/20 10:33 [facility] [id number]) PT-Transfer Assessment Sit to and From Stand Sit to and from Stand Contact Guard Assistance,Use of Upper Extremities Equipment Transfer Assistive Device Gait Belt,Front Wheeled Walker Orthotic/Prosthetic Devices or Brace: No Transfers Transfer Destination Chair Transfer Technique Amb with FWW Transfer Ability Level of Assist Contact Guard Assistance,Use of Upper Extremities Comments Mobility Comments Pt was sitting in chair upon arrival. Pt completed sit to stand with FWW CGA using B armrests. Pt requested to use the bathroom. Pt amb ~5 ft and sat down on toilet with FWW, CGA, and grab bars. PT stepped outside until she was finished. Pt took care of her own pericare. Pt stood up and amb ~7 ft to the sink to wash her hands. In standing, RN changed her dressing on the back. Pt then amb ~250 ft total in the hallway to the stairs and back to the room with FWW SBA. Pt performed 3 steps up and down x2 with R railing CGA. Pt was able to remember to lead with the stronger leg for ascending and to lead with the weaker leg for descending. No unsteadiness or LOB was observed. Pt amb back to the room and sat down in the chair with FWW SBA. Call light placed within reach. Gait Assessment Gait Gait Assistance Required: Standby Assistance Distance (Feet) 250 Able to Maintain Weight Bearing Status Yes During Gait Assistive Devices Assistive Device Gait Belt,Front Wheeled Walker Orthotic/Prosthetic Devices or Brace: No Gait Deviations General Gait Pattern Antalgic,Decreased Stride Length,Decreased Feet Clearance,Flexed Trunk Factors Limiting Gait Function Factors Limiting Gait Function Decreased Activity Tolerance, Decreased Sensation,Decreased Strength,Limited Range of Motion,Pain,Poor Balance Comments Gait Comments See mobility comments. Stair Climbing Assessment Evaluation Level of Assist On Stairs Contact Guard Assistance Devices Stair Climbing Assistive Devices Right Railing Technique/Endurance Stair Climbing Direction Ascend and Descend Stair Climbing Technique Step to Step Number of Steps Climbed 3 Stair Climbing Set # Repetitions (reps) 2 Comments Stair Climbing Comments See mobility comments. PT-Balance Assessment Sitting Balance and Reactions Static Sitting Balance Ability Good Dynamic Sitting Balance Ability Good Standing Balance and Reactions Static Standing Balance Ability Good Dynamic Standing Balance Ability Good Device Used FWW M5 PT-IP Objective Assessments Start: 01/14/20 10:26 Freq: NEEDED Status: Discharge Protocol: Document 01/14/20 11:22 [facility] (Rec: 01/14/20 13:00 [facility] [id number]) Orientation Orientation/Cognition Level of Alertness Alert Orientation Name,Age,Birthday,Month,Date, Year,Day of Week,Place, Situation Language Function Ability No Deficits Noted Safety Awareness Understands Safety Issues Memory Description No Deficits Noted Gross Range of Motion Lower Extremity ROM Assessment Within Functional Limits Strength Lower Extremity Strength Assessment Bilaterally Impaired Hip L4/5; R 4-/5 Knee B 4+/5 Ankle B 4+/5 Coordination Assessment Gross Coordination Gross Coordination WNL Sensation Assessment Sensation Gross Sensation Right LE Impaired,Left LE Impaired Light Touch Impaired Comments Sensation Comments Light touch impaired with right more affected than left. Pt also endorsed saddle anesthesia which is chronic. Muscle Tone Muscle Tone WNL Yes M6 PT-IP Treatment Start: 01/14/20 10:26 Freq: NEEDED Status: Discharge Protocol: Document 01/15/20 10:15 [facility] (Rec: 01/15/20 10:33 [facility] [id number]) Physical Therapy Treatment Education Education Provided Precautions,Post-Op Packet, Safety Other Treatments Other Treatment Performed Provided education on role of PT, plan of care, post op precautions, and stair climbing technique. M7 PT-IP Assessment and Plan Start: 01/14/20 10:26 Freq: NEEDED Status: Discharge Protocol: Document 01/15/20 10:15 [facility] (Rec: 01/15/20 10:33 [facility] [id number]) PT Summary Assessment and Plan Potential Rehabilitation Potential Good Status of Condition at Evaluation Evolving Summary Impairments Pain,ROM,Strength,Balance, Sensation,Bed Mobility, Transfers,Gait,Activity Tolerance Assessment Summary Pt was able to amb longer distance today and continued to demonstrate steadiness without any LOB during amb or stair climbing. Pt is good at remembering and following instructions. PT anticipates pt will be safe to d/c home with assistance once medically cleared. Goals Bed Mobility Goal Standby Assistance Transfer Goal Standby Assistance,Front Wheeled Walker Gait Goal Standby Assistance,Front Wheel Walker Gait Distance 200 Other Goals - up/down 4 steps with unilateral rail SBA Days to Meet Goals 3 Frequency of Treatment Frequency Of Treatment Discharge Recommendations To Nursing Amount of Assist Needed 1 Person Assist Discharge Recommendations PT Discharge Recommendations Home with Assistance Transportation Needs at Discharge Private Vehicle Treatment was provided by Louis Chu, SPT and supervised by Yandel Barajas, PT. I personally reviewed this note and agree with its contents.
== END 2020-01-15 11:24 | disposition home or self-care (01) | DRG 454 ==
LOC: OR 16:18 → AC 16:18
PROVIDERS: Physician Assistant Surgical; Admitting Provider Orthopaedic Surgery Orthopaedic Surgery of the Spine; PCP Internal Medicine; Referring Provider Internal Medicine; Visit Provider Orthopaedic Surgery Orthopaedic Surgery of the Spine
PROC: 0SG00AJ Fusion of Lumbar Vertebral Joint with Interbody Fusion Device, Posterior Approach, Anterior Column, Open Approach (ICD-10-PCS; principal; 2020-01-13 12:45)
DX: M48.061 Spinal stenosis, lumbar region without neurogenic claudication (principal); I50.20 Unspecified systolic (congestive) heart failure; I42.9 Cardiomyopathy, unspecified; G62.89 Other specified polyneuropathies; I44.7 Left bundle-branch block, unspecified; M43.16 Spondylolisthesis, lumbar region; E03.9 Hypothyroidism, unspecified; Z20.828 Contact with and (suspected) exposure to other viral communicable diseases
CPT/HCPCS: 36415; 72100; 76000; 85027; 87635; 97116; 97161; 97165; 97530; 97535; C1776; C9290; J0131; J0330; J0690; J1100; J2250; J2405; J2704; J3010